=== PATIENT | male | born 1995 | race Caucasian/White ===

== ENCOUNTER 2021-07-01 09:36 | Emergency (ER) | payer OTHER ==
[2021-07-01 10:05] VITALS: BP 121/83; PULSE 94; TEMP 98; BMI 29.2
[2021-07-01] MEDS ORDERED: IBUPROFEN 600 MG TABLET (FP) PO ONE ×2 (11:07→11:10)
== END 2021-07-01 11:38 | disposition home or self-care (01) ==
LOC: JERFT 09:36
DX: S93.402A Sprain of unspecified ligament of left ankle, initial encounter (principal); X50.0XXA Overexertion from strenuous movement or load, initial encounter; W17.89XA Other fall from one level to another, initial encounter
CPT/HCPCS: 73590-TC-LT-FY; 73610-TC-LT-FY; 73630-TC-LT; 99284-25